=== PATIENT | female | born 1935 | race Caucasian/White ===

== ENCOUNTER → 2016-10-17 | Outpatient (CLI) | payer MEDICARE, OTHER ==
[~2016-10-17] MED LIST: APIX5TAB PO; ASPI81CH43 PO; ATO40T OR; CARI350T21 OR; CLOP75TA28 PO; DIPY50TA OR; ENAL20TA70 OR; FAMOTIDINE PO; FOLIPOW28; FURO40TA4 PO; ISOS60TA PO; LEVO100T69 OR; LISI-646 PO; MAGN400T7 PO; METOPROLOL; NITR0.4D10 TD; POT10T PO; POTA10SO11 PO; SOTA80TA PO; vit E
[2016-10-17 09:00] VITALS: BP 167/69
[2016-10-17 10:05] VITALS: BP 143/65
[2016-10-17 12:36] LABS: Basophils # (auto) 0 uL; Basophils % (auto) 0.7 % (0.0-2.0); Eosinophils # (auto) 0.1 uL; Eosinophils % (auto) 2.3 % (0.0-7.0); Hematocrit 40.8 % (36.0-46.0); Hemoglobin 13.3 g/dL (12.2-16.2); Lymphocytes # (auto) 0.7 uL; Lymphocytes % (auto) 16.5 % (10.0-50.0); Mean Corpuscular Hgb Conc. 32.7 g/dL (32.0-36.0); Mean Corpuscular Volume 94.8 fL (80.0-100.0); Mean Platelet Volume 8.7 fL (7.4-10.4); Monocytes # (auto) 0.6 uL; Monocytes % (auto) 12.6 % (0.0-12.0); Neutrophils # (auto) 3.1 uL; Neutrophils % (auto) 67.9 % (37.0-80.0); Platelet Count (auto) 199 10^3/uL (140-450); White Blood Cell 4.5 10^3/uL (4.4-10.8)
[2016-10-17 12:52] LABS: INR 1.07 (0.9-1.15); Partial Thromboplastin Time 26.5 sec (22.64-33.71)
[2016-10-17 13:09] LABS: BUN/Creatinine Ratio 33.6; Calcium 10.3 mg/dL (8.5-10.1); Potassium 5.3 mmol/L (3.5-5.1)
== END | disposition home or self-care (01) ==
LOC: Rad HDHVI 09:05
PROVIDERS: ATTEND Internal Medicine Cardiovascular Disease
DX: I10 Essential (primary) hypertension (principal); D64.9 Anemia, unspecified; R79.1 Abnormal coagulation profile
CPT/HCPCS: 36415; 71020; 80048; 82306; 85025; 85610; 85730; G0463

== ENCOUNTER → 2016-10-18 | Day surgery (SDC) | payer MEDICARE, OTHER ==
[~2016-10-18] MED LIST changes: +AML5T PO; +ANGIOMAX 250 MG VIAL IV ONE; +ASCO500T11 PO; -ASPI81CH43 PO; -ATO40T OR; -CARI350T21 OR; +CHOL20007 OR; -CLOP75TA28 PO; -DIPY50TA OR; +DRON400T; -ENAL20TA70 OR; +FAM20T PO; +FOLI1TAB6 PO; +FURO40TA PO; +ISOS60TA24 PO; +LEVO100I PO; -METOPROLOL; +MIDAZOLAM HCL 1MG/1ML-2 ML VIAL ONE; -POT10T PO; +POTA20TA53 PO; +SODIUM CHL 0.9% 0 ML ONE; -SOTA80TA PO; +fentaNYL CITRATE 100 MCG/2 ML VL ONE
== END | disposition home or self-care (01) ==
LOC: CATH 11:01
PROVIDERS: ATTEND Internal Medicine Cardiovascular Disease
DX: I73.9 Peripheral vascular disease, unspecified (principal); Z98.62 Peripheral vascular angioplasty status; J44.9 Chronic obstructive pulmonary disease, unspecified; N18.3 Chronic kidney disease, stage 3 (moderate); Z72.0 Tobacco use; I25.10 Atherosclerotic heart disease of native coronary artery without angina pectoris; G45.9 Transient cerebral ischemic attack, unspecified; I25.5 Ischemic cardiomyopathy
CPT/HCPCS: 36245; C1760; C1769; C1887; C1894; J2250; J3010; J7030; 99152

== ENCOUNTER → 2016-10-24 | Outpatient (CLI) | payer MEDICARE, OTHER ==
[~2016-10-24] MED LIST changes: -ANGIOMAX 250 MG VIAL IV ONE; -ASCO500T11 PO; -CHOL20007 OR; -DRON400T; -FAM20T PO; -FOLI1TAB6 PO; -FURO40TA PO; -FURO40TA4 PO; -ISOS60TA24 PO; -LEVO100I PO; -LISI-646 PO; -MIDAZOLAM HCL 1MG/1ML-2 ML VIAL ONE; -POTA10SO11 PO; -POTA20TA53 PO; -SODIUM CHL 0.9% 0 ML ONE; -fentaNYL CITRATE 100 MCG/2 ML VL ONE
[2016-10-24 16:49] LABS: Basophils # (auto) 0 uL; Basophils % (auto) 0.3 % (0.0-2.0); Eosinophils # (auto) 0 uL; Eosinophils % (auto) 0.2 % (0.0-7.0); Hematocrit 39.7 % (36.0-46.0); Hemoglobin 13.1 g/dL (12.2-16.2); Lymphocytes # (auto) 0.6 uL; Lymphocytes % (auto) 6.5 % (10.0-50.0); Mean Corpuscular Hemoglobin 31.3 pg (28.0-32.0); Mean Corpuscular Hgb Conc. 32.9 g/dL (32.0-36.0); Mean Corpuscular Volume 95.1 fL (80.0-100.0); Mean Platelet Volume 9.1 fL (7.4-10.4); Monocytes # (auto) 0.9 uL; Monocytes % (auto) 9.9 % (0.0-12.0); Neutrophils # (auto) 7.3 uL; Neutrophils % (auto) 83.1 % (37.0-80.0); Platelet Count (auto) 238 10^3/uL (140-450); Red Cell Distribution Width 13.5 % (11.6-16.0); White Blood Cell 8.8 10^3/uL (4.4-10.8)
[2016-10-24 17:22] LABS: Albumin 3.6 g/dL (3.4-5.0); BUN/Creatinine Ratio 35.4; Bilirubin, Total 1.1 mg/dL (0.2-1.0); Calcium 10.8 mg/dL (8.5-10.1); Total Protein 6.8 g/dL (6.4-8.2)
== END | disposition home or self-care (01) ==
LOC: LAB 10:54
PROVIDERS: ATTEND Internal Medicine Cardiovascular Disease
DX: I10 Essential (primary) hypertension (principal); D64.9 Anemia, unspecified
CPT/HCPCS: 36415; 80053; 85025